=== PATIENT | female | born 1975 | race Caucasian/White ===

== ENCOUNTER → 2018-02-26 10:19 | Outpatient (CLI) | payer OTHER, SELFPAY ==
--- NOTE | 2018-02-26 10:20 | US_ITS ---
STUDY: RENAL ULTRASOUND - COMPLETE REASON FOR EXAM: Female, 42 years old. Right renal cell carcinoma with surgery 5 years ago TECHNIQUE: Ultrasound evaluation of the kidneys was performed with real-time and static gtz-scale imaging. COMPARISON: CT 03/07/2017 FINDINGS: RIGHT KIDNEY: Normal location of the right kidney, which is normal in size. The right kidney measures 9.0 x 5.5 x 5.3 cm. Postoperative changes involving the cortex. No recurrent or residual right renal mass is seen. The renal cortex measures 1.3 cm. There are no right renal calculi. There is no right hydronephrosis. DISTAL RIGHT URETER: There is non-visualization of the distal right ureter. There is no demonstrated right ureterovesical junction calculus. There is no demonstrated right ureteral jet. LEFT KIDNEY: Normal location of the left kidney, which is normal in size. The left kidney measures 12.2 x 6.2 x 5.5 cm. There is a normal cortex of the left kidney. The renal cortex measures 1.4 cm. There is no left renal mass or cyst. There are no left renal calculi. There is no left hydronephrosis. DISTAL LEFT URETER: There is non-visualization of the distal left ureter. There is no demonstrated left ureterovesical junction calculus. There is no demonstrated left ureteral jet. A left ovary cyst is noted measuring 5.3 x 4.5 x 4.2 cm. BLADDER: The distended urinary bladder has a volume of 760 ml. The empty urinary bladder has a volume of ml. There is a normal wall thickness of the distended urinary bladder. There is no demonstrated mass within the urinary bladder. There are no demonstrated bladder calculi. US/Kidney and Bladder IMPRESSION: Postoperative changes involving the right kidney. No recurrent or residual right renal mass is seen. Left ovary cyst measuring up to 5.3 cm. Distended urinary bladder. Electronically Signed: Donte Michel MD at 5:09 EDT Tel , Service support ,
== END ==
PROVIDERS: Family Provider Family Medicine; PCP Family Medicine; Visit Provider Urology
DX: C64.1 Malignant neoplasm of right kidney, except renal pelvis (principal)
CPT/HCPCS: 76770

== ENCOUNTER → 2019-02-12 16:45 | Outpatient (CLI) | payer OTHER, SELFPAY ==
[2019-02-12 17:48] LABS: Free T3 2.4 pg/mL (2.18-3.98); T4 Free Direct 1.11 ng/dL (0.76-1.46); Thyroid Stim Hormone (TSH) 2.76 uIU/mL (0.358-3.74)
== END ==
PROVIDERS: Family Provider Family Medicine; PCP Family Medicine; Visit Provider Family Medicine
DX: E03.9 Hypothyroidism, unspecified (principal)
CPT/HCPCS: 36415; 84439; 84443; 84481

== ENCOUNTER → 2019-02-25 07:45 | Outpatient (CLI) | payer OTHER, SELFPAY ==
--- NOTE | 2019-02-25 07:48 | US_ITS ---
STUDY: RENAL ULTRASOUND - COMPLETE REASON FOR EXAM: Female, 43 years old. History of right renal cancer with removal of 20% of the kidney in 2013. TECHNIQUE: Ultrasound evaluation of the kidneys was performed with real-time and static gtz-scale imaging. COMPARISON: February 26, 2018. FINDINGS: RIGHT KIDNEY: Normal location of the right kidney, which is normal in size. The right kidney measures 9.1 x 5.9 x 5.4 cm. There is a normal cortex of the right kidney. The renal cortex measures 1.6 cm. There is no right renal mass or cyst. There are no right renal calculi. There is no right hydronephrosis. Cortical defect midpole compatible with postsurgical change which has remained stable. DISTAL RIGHT URETER: There is non-visualization of the distal right ureter. There is no demonstrated right ureterovesical junction calculus. There is a visualized right ureteral jet. LEFT KIDNEY: Normal location of the left kidney, which is normal in size. The left kidney measures 12.4 x 6.2 x 5.4 cm. There is a normal cortex of the left kidney. The renal cortex measures 1.7 cm. There is no left renal mass or cyst. There are no left renal calculi. There is no left hydronephrosis. DISTAL LEFT URETER: There is non-visualization of the distal left ureter. There is no demonstrated left ureterovesical junction calculus. There is a visualized left ureteral jet. BLADDER: The distended urinary bladder has a volume of 352 ml. The empty urinary bladder has a volume of 21 ml. There is a normal wall thickness of the distended urinary bladder. There is no demonstrated mass within the urinary bladder. There are no demonstrated bladder calculi. US/Kidney and Bladder IMPRESSION: Stable post surgical defect midpole of the right kidney. No evidence of recurrence of tumor. Normal left kidney. No significant postvoid bladder residual. Electronically Signed: Troy العلي MD at 7:42 EDT , Service support ,
--- NOTE | 2019-02-25 07:49 | RAD_ITS ---
STUDY: X-RAY CHEST REASON FOR EXAM: Female, 43 years old. History of renal carcinoma. Follow-up examination. TECHNIQUE: PA and lateral views of the chest. COMPARISON: Comparison is made with prior study dated March 07, 2017. FINDINGS: The lungs are clear and expanded. There is no demonstrated pleural abnormality. Normal size heart. Normal mediastinum and drea. Normal visualized pulmonary arteries. Normal visualized aortic arch and descending thoracic aorta. There are mild degenerative changes of the visualized thoracic spine. Normal visualized ribs, clavicles, and shoulders. There is no demonstrated abnormality of the visualized soft tissue structures of the upper abdomen. RAD/Chest PA and Lateral IMPRESSION: Normal x-ray examination of the chest. Electronically Signed: Zeeshan Harper, at 10:19 EDT , Service support ,
[2019-02-25 09:10] LABS: Absolute Lymphocyte Count 2.58 X10^3/ul (0.83-4.51); Absolute Neutrophil Count 3.7 X10^3/uL (2.0-7.7); Basophil# 0.04 X10^3/uL; Basophil% 0.6 % (0-1); Eosinophil# 0.13 X10^3/uL; Eosinophils% 1.9 % (0-5); Hematocrit 40.9 % (37-47); Hemoglobin 13.8 g/dl (12.0-15.0); Lymphocyte # 2.58 X10^3/ul (4.0); Lymphocyte % 37.1 % (19-41); Mean Corp Hgb Conc 33.7 g/gl (32-36); Mean Corpuscular Hgb 29.8 pg (27.0-32.0); Mean Corpuscular Volume 88.3 fL (81-99); Mean Platelet Vol. 9.3 fl (6.2-12.0); Monocyte# 0.48 X10^3/uL; Monocyte% 6.9 % (0-10); Neutrophil # 3.71 X10^3/uL (2.7-7.7); Neutrophil % 53.4 % (47-70); Platelet Count 342 K/mm3 (150-450); RBC Distribution Width CV 12.4 % (11.6-14.6); RBC Distribution Width SD 39.6 fl (35.1-43.9); Red Blood Count 4.63 M/mm3 (4.2-5.4)
[2019-02-25 09:17] LABS: POSITIVE COUNT NO; POSITIVE DIFFERENTIAL NO; POSITIVE MORPHOLOGY NO
[2019-02-25 09:34] LABS: Anion Gap 7 (5-15); BUN 13 mg/dL (7-18); BUN/Creat Ratio 12.7 RATIO (10-20); Calcium,Total 9.1 mg/dL (8.5-10.1); Chloride 106 mmol/L (98-107); Creatinine, Serum 1.02 mg/dL (0.55-1.02); EST Glomerular Filtration Rate 63 mL/min (>60); Est Glom Filt Rate - Afr Amer 77 mL/min (>60); Glucose 101 mg/dL (74-106); Potassium 4.1 mmol/L (3.5-5.1); Sodium Level 140 mmol/L (136-145)
== END ==
PROVIDERS: Family Provider Family Medicine; PCP Family Medicine; Referring Provider Urology; Visit Provider Urology
DX: C64.1 Malignant neoplasm of right kidney, except renal pelvis (principal)
CPT/HCPCS: 36415; 71046; 76770; 80048; 85025

== ENCOUNTER → 2019-03-13 14:43 | Outpatient (CLI) | payer OTHER, SELFPAY ==
--- NOTE | 2019-03-13 14:45 | BI_ITS ---
MAMMOGRAPHY - BILATERAL SCREENING REASON FOR EXAM: Female, 43 years old. Routine annual screening examination. PERTINENT HISTORY: Non-contributory. TECHNIQUE: Digital bilateral breast antwan (3D mammographic acquisition) in the CC and MLO projections. 2-D mediolateral oblique (MLO) and craniocaudad (CC) views of both breasts were obtained. CAD: Full Field Digital Mammography with Computer Added Detection was performed. COMPARISON: None. Baseline examination. FINDINGS: Breast Composition: There are scattered areas of fibroglandular density. There are no dominant masses or suspicious calcifications. Small bilateral benign-appearing axillary lymph nodes. No other significant abnormalities are identified. BI/SCREENING MAMM (CAD), BILAT IMPRESSION: Negative screening mammogram. Yearly followup mammogram recommended. (A) ASSESSMENT CATEGORY: BIRADS Category 2: Benign. A letter regarding these results will be sent to the patient by the facility within 30 days. Approximately 10% of breast cancers are not detected by mammography. A normal mammogram should not delay biopsy of a clinically suspicious abnormality. [id number] Electronically Signed: Zeeshan Harper, at 8:04 EDT , Service support ,
== END ==
PROVIDERS: Family Provider Family Medicine; PCP Family Medicine; Referring Provider Family Medicine; Visit Provider Family Medicine
DX: Z12.31 Encounter for screening mammogram for malignant neoplasm of breast (principal)
CPT/HCPCS: 77063; 77067

== ENCOUNTER → 2019-07-31 13:04 | Outpatient (CLI) | payer OTHER, SELFPAY ==
--- NOTE | 2019-07-31 13:05 | RAD_ITS ---
STUDY: SWALLOWING STUDY REASON FOR EXAM: Female, 43 years old. Intermittent dysphagia. Globus sensation. TECHNIQUE: The examination was performed with Speech Pathology in attendance. Under fluoroscopic observation, the patient ingested thin barium, thick barium, barium pudding, and barium coated cracker. FLUOROSCOPY TIME: 0:59 minutes/seconds. 836 images were obtained. RADIOLOGIST INVOLVEMENT: Radiologist was present and providing direct supervision. COMPARISON: None. FINDINGS: The following was observed during swallowing of the various mixtures of barium: Thin Barium: Transient penetration and ejection with ingestion of thin liquids. Thick Barium: There was no evidence of aspiration or laryngeal penetration. Barium Pudding: There was no evidence of aspiration or laryngeal penetration. Barium Coated Cracker: There was no evidence of aspiration or laryngeal penetration. RAD/Swallowing Function w/Video IMPRESSION: Transient penetration with ejection upon ingestion of thin liquids. The swallow study findings were discussed with the patient by the speech pathologist at the conclusion of the examination. Please see speech pathology report for more information and recommendations. Electronically Signed: Zeeshan Harper, at 14:11 EDT , Service support ,
--- NOTE | 2019-07-31 13:10 | SP.MBSS_ITS ---
PRIMARY / SECONDARY DIAGNOSIS: dysphagia (R13.10) REFERRING PHYSICIAN: Dr. Chas Gibbs MD. CURRENT DIET: regular textures, thin liquids DENTITION: WFL MENTAL STATUS: WNL RESPIRATORY STATUS: O2 via room air REASON FOR REFERRAL: The Patient is a 43 year old female referred for a modified barium swallow (MBS) study to objectively assess the Patients oropharyngeal swallow function under fluoroscopy secondary to reported globus sensation with occasional return to the oral cavity (acidic qualities). MEDICAL HISTORY: Bronchitis, status post tonsillectomy and adenoidectomy (1988), renal mass, chronic headaches, unspecified hearing loss, vision loss, hyperlipidemia, and hypothyroidism. PREVIOUS MODIFIED BARIUM SWALLOW STUDY: None. ADDITIONAL OBJECTIVE ASSESSMENT RESULTS: 03/17/2017 MRI revealed a normal unenhanced and enhanced MRI of the bilateral internal auditory canals (I.A.C's); no intra-axial pathology; right mastoid sinus disease. ASSESSMENT PARAMETERS: The Patient participated in a Modified Barium Swallow (MBS) study on 07/31/2019. Dr. Harper was the radiologist present for this evaluation. This study was recorded in the lateral view and images were sent to PACs for storage. Scoring was completed through each trial using the 8-point Penetration-Aspiration Scale (PAS), and summarized via the Modified Barium Swallow Impairment Profile (MBSImP) and the Bolus Residue Scale (BRS), with severity scoring through the Dysphagia Severity Rating Scale (DSRS) and the Swallowing Performance Scale (PSP), and recommended diet textures through the International Dysphagia Diet Standardisation Initiative (IDDSI). RESULTS OF THE EVALUATION: The Patient presents with mastication and deglutition abilities found to be grossly within normal limits (DSRS: 1; SPS: 1). OBJECTIVE ASSESSMENT OF SWALLOW FUNCTION (QUANTITATIVE ? PER TRIAL): PENETRATION / ASPIRATION SCALE (MONTEJO): 1 = does not enter airway 2 = enters airway/above vocal folds/ejected 3 = enters airway/above vocal folds/not ejected 4 = enters airway/contacts vocal folds/ejected 5 = enters airway/contacts vocal folds/not ejected 6 = enters airway/below vocal folds/ejected 7 = enters airway/below vocal folds/not ejected despite effort 8 = enters airway/below vocal folds/no effort PENETRATION / ASPIRATION SCALE (SCORE): Thin liquid - 5 mL tsp.: 1 Thin liquids via cup (single sip): 1 Thin liquids via cup (single sip): 1 Thin liquids via cup (sequential swallows): 2 Pudding via spoon: 1 Regular textured cookie: 1 Thin liquids via straw (single sip): 2 Thin liquids via straw (single sip): 1 Thin liquids via straw (sequential swallows): 1 OBJECTIVE ASSESSMENT OF SWALLOW FUNCTION (QUANTITATIVE ? AGGREGATE): MODIFIED BARIUM SWALLOW IMPAIRMENT PROFILE (MBSImP) LABIAL SEAL: 0 (of 4) no labial escape TONGUE CONTROL: 0 (of 3) cohesive bolus BOLUS PREPARATION / MASTICATION: 0 (of 3) timely and efficient BOLUS TRANSPORT / LINGUAL MOTION: 0 (of 4) brisk tongue motion ORAL RESIDUE: 1 (of 4) trace residue lining oral structures INITIATION OF PHARYNGEAL SWALLOW: 1 (of 4) valleculae SOFT PALATE ELEVATION: 0 (of 4) no bolus between soft palate & pharyngeal wall LARYNGEAL ELEVATION: 0 (of 3) complete superior movement / approximation ANTERIOR HYOID EXCURSION: 0 (of 2) complete movement EPIGLOTTIC MOVEMENT: 0 (of 2) complete inversion LARYNGEAL VESTIBULE CLOSURE: 0 (of 2) complete closure PHARYNGEAL STRIPPING WAVE: 0 (of 2) present / complete PE SEGMENT OPENIN (of 3) complete distension / duration; no obstruction TONGUE BASE RETRACTION: 0 (of 4) no contrast PHARYNGEAL RESIDUE: 1 (of 4) trace residue ESOPHAGEAL BOLUS CLEARANCE: could not view BOLUS RESIDUE SCALE (BRS): 1 (of 6) no residue DYSPHAGIA SEVERITY RATING SCALE (DSRS): 1 (within functional limits) SWALLOWING PERFORMANCE SCALE (SPS): 1 (within normal limits) OBJECTIVE ASSESSMENT OF SWALLOW FUNCTION (QUALITATIVE): ORAL PREPARATORY PHASE: sufficient mastication rate and quality; sufficient anterior oral containment during presentation / manipulation; preserved management of breathing / bolus formation without disrupted E ? S ? E pattern ORAL TRANSITIONAL PHASE: no presence of transitional incompetence; no lingual discoordination (no tremor / undulations); sufficient oral clearance; sufficient oral containment across textures. PHARYNGEAL PHASE: no signs of pharyngeal dyssynchrony; sufficient hyolaryngeal excursion; sufficient / consistent laryngeal vestibule pressure generated to expel penetrated material; no signs of pharyngeal dysmotility; no signs of velopharyngeal impairments. ESOPHAGEAL PHASE: no obvious esophageal phase abnormalities observed. 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 No further skilled speech- language services warranted at this time targeting dysphagia. POST ASSESSMENT EDUCATION: Results and recommendations were discussed with the Patient immediately following MBS completion, with the Patient verbalizing understanding and agreement with all recommendations and education provided. DIET TEXTURE RECOMMENDATIONS: Will recommend a regular textured (IDDSI: 7), thin liquid diet (IDDSI: 0) diet. RECOMMENDED COMPENSATORY STRATEGIES: Seated upright at 90 degrees during PO intake, remain upright for 30-60 minutes post meal (GERD precaution) IMAGE COUNT: [id number] Vaibhav Mitchell M.A., CCC-FARM DEMONSTRATOR MBSImP Certified, LSVT Certified [facility] Speech-Language Pathology Department [email or web address]
== END ==
PROVIDERS: Family Provider Family Medicine; PCP Family Medicine; Referring Provider Family Medicine; Visit Provider Family Medicine
DX: R13.10 Dysphagia, unspecified (principal)
CPT/HCPCS: 74230; 92611

== ENCOUNTER → 2020-01-08 15:48 | Outpatient (CLI) | payer OTHER, SELFPAY ==
--- NOTE | 2020-01-08 15:49 | RAD_ITS ---
STUDY: X-RAY - RIGHT SHOULDER REASON FOR EXAM: Female, 44 years old. CHILD LANDED ON SHOULDER TECHNIQUE: 4 view(s) of the shoulder. COMPARISON: None. FINDINGS: Normal glenohumeral articulation. Normal acromioclavicular joint. Normal acromion. Normal humeral head and visualized proximal humerus. The soft tissue structures are unremarkable. Normal visualized pulmonary apex. RAD/Shoulder min 2 Views IMPRESSION: Normal x-ray examination of the shoulder. Electronically Signed: Zeeshan Harper, at 16:01 EST , Service support ,
== END ==
PROVIDERS: PCP Family Medicine; Referring Provider Physician Assistant; Visit Provider Physician Assistant
DX: S49.91XA Unspecified injury of right shoulder and upper arm, initial encounter (principal)
CPT/HCPCS: 73030

== ENCOUNTER → 2021-08-03 17:00 | Outpatient (CLI) | payer OTHER, SELFPAY ==
--- NOTE | 2021-08-03 16:14 | BI_ITS ---
MAMMOGRAPHY - BILATERAL SCREENING REASON FOR EXAM: Female, 45 years old. Routine annual screening examination. PERTINENT HISTORY: Aunt with breast cancer. TECHNIQUE: Digital bilateral breast miranda (3D mammographic acquisition) in the CC and MLO projections. 2-D mediolateral oblique (MLO) and craniocaudad (CC) views of both breasts were obtained. CAD: Full Field Digital Mammography with Computer Added Detection was performed. COMPARISON: Comparison is made with prior examination dated 03/13/2019. FINDINGS: Breast Composition: There are scattered areas of fibroglandular density. There are no dominant masses or suspicious calcifications. Stable asymmetry of breast tissue were more breast tissue is seen in the left breast as compared to the right side. No other significant abnormalities are identified. There has been no significant change since the prior study. BI/SCRN MAMM (CAD)W/MIRANDA BILAT IMPRESSION: Stable bilateral screening mammogram. Yearly follow-up mammogram recommended. (A) ASSESSMENT CATEGORY: BIRADS Category 2: Benign. A letter regarding these results will be sent to the patient by the facility within 30 days. Approximately 10% of breast cancers are not detected by mammography. A normal mammogram should not delay biopsy of a clinically suspicious abnormality. [id number] Electronically Signed: Zeeshan Harper MD at 8:30 EDT , Service support ,
== END ==
PROVIDERS: PCP Family Medicine; Referring Provider Family Medicine; Visit Provider Family Medicine
DX: Z12.31 Encounter for screening mammogram for malignant neoplasm of breast (principal)
CPT/HCPCS: 77063; 77067

== ENCOUNTER → 2021-11-22 07:12 | Outpatient (CLI) | payer OTHER, SELFPAY ==
--- NOTE | 2021-11-22 07:42 | MRI_ITS ---
STUDY: MRI RIGHT ANKLE WITH AND WITHOUT CONTRAST REASON FOR EXAM: Female, 46 years old. TENDON DISORDER, LUMP ANTERIOR TO LATERAL MALLEOLUS TECHNIQUE: Standarized fat and water weighted pulse sequences were obtained in all 3 orthogonal plane pre and post intravenous administration of 20 CC IV DOTAREM. COMPARISON: None. FINDINGS: A benign peripherally enhancing ganglion cyst is present over the dorsum and lateral aspect of the cuboid bone measuring 2.47 x 1.50 cm in diameter. There is minimal peripheral enhancement of the wall of the ganglion cyst but no internal enhancement. There is no evidence of a sarcoma or malignant process. This cyst is seen arising from the fourth metatarsal cuboid articulation and herniating onto the dorsum of this region. A small ankle joint effusion is present. Tiny ganglion cyst herniating from the talocalcaneal articulation/sinus tarsi also noted adjacent to the body of the talus measuring 1.65 cm. No bone marrow edema or occult fracture or osteochondral defect is present. Normal subcutis adipose space. Normal posterior tibialis tendon. Normal flexor digitorum longus tendon. Normal flexor hallucis longus tendon. Normal peroneus longus and brevis tendons. Normal tibialis anterior tendon. Normal extensor hallucis longus tendon. Normal extensor digitorum longus tendons. Normal Achilles tendon and teno-osseous insertion. Small plantar calcaneal spur noted with moderate thickening of the underlying central cord of the plantar fascia also with mild to moderate intrafascial degeneration but no tearing or retraction. No bursitis is present. Normal remaining aspects of the plantar fascia. Minimal reactive edema is present in the plantar calcaneal spur where it attaches to the plantar fascia. Normal intrinsic muscles of the rearfoot. Normal distal tibiofibular syndesmotic ligamentous complex. Normal lateral ligamentous complex. Normal subtalar ligaments and sinus tarsi. Normal deltoid ligamentous complexes. Normal plantar calcaneonavicular (spring) ligament. Normal tibiotalar articulation. Normal talar dome. Normal subtalar articulations. Normal talonavicular articulation. Normal calcaneocuboid articulation. Normal navicular-cuneiform articulations. There is no abnormal contrast enhancement. MRI/Lower Ext Joint Only W/WO Cont IMPRESSION: 1. A benign peripherally enhancing ganglion cyst is present over the dorsum and lateral aspect of the cuboid bone measuring 2.47 x 1.50 cm in diameter. There is minimal peripheral enhancement of the wall of the ganglion cyst but no internal enhancement. There is no evidence of a sarcoma or malignant process. This cyst is seen arising from the fourth metatarsal cuboid articulation and herniating onto the dorsum of this region. 2. Small plantar calcaneal spur noted with moderate thickening of the underlying central cord of the plantar fascia also with mild to moderate intrafascial degeneration but no tearing or retraction. No bursitis is present. Normal remaining aspects of the plantar fascia. Minimal reactive edema is present in the plantar calcaneal spur where it attaches to the plantar fascia Electronically Signed: Chris Potter MD at 23:49 EST , Service support ,
== END ==
PROVIDERS: PCP Family Medicine; Referring Provider Podiatrist; Visit Provider Podiatrist
DX: M67.471 Ganglion, right ankle and foot (principal); M77.31 Calcaneal spur, right foot
CPT/HCPCS: 73723; A9575

== ENCOUNTER → 2021-11-23 | Outpatient (CLI) | payer OTHER, SELFPAY ==
--- NOTE | 2021-11-23 16:23 | FLU_PTH ---
PATIENT: SALAS ROMERO LOC: [facility] U#:[id number] AGE/SX: 46/F ROOM: RE11/23/[address]: ABHI FlanaganM : 1975 BED: DIS: 11/23/2021 SPEC #: [id number] RECD: 11/24/21 12:06 STATUS: IAN REXavier #: [id number] SEGUN: 11/23/21 16:[address]: Elias Cook DEPT: CYTOLOGY RECD BY: Shawna Nguyen ENTERED: 11/24/21 12:07 SP TYPE: Fluid OTHR DR: Dr. Chas Gibbs, DO Tissues: CYST Procedures: Special Stain Group II Surgery Specimen Level IV Cytospin Fluid HEADER OPERATION: Not noted PRE-OP DIAGNOSIS: M67.110 TISSUE SUBMITTED: Right foot ganglionic cyst fluid DIAGNOSIS CYTOLOGY Right foot ganglionic cyst fluid (cytospin and cell block): Negative for malignant cells. See comment. SJ:heriberto 11/25/2021 COMMENT Clinical correlation and appropriate follow up are necessary. CYTOLOGY STUDY Slides are reviewed. CYTOLOGY GROSS Received is 2 ml of pink cloudy thick fluid labeled with the patient's name and and designated per the requisition as right ganglionic cyst. Submitted for cytology preparation including cell block. / heirberto 11/24/2021 TC:5 CPT: 81866, [id number]
[2021-11-23 16:24] LABS: Cytology, Body Fluid / CSF SEE PATHOLOGY REPORT
== END | disposition home or self-care (01) ==
LOC: LABSPEC 16:22
PROVIDERS: PCP Family Medicine; Visit Provider Podiatrist
DX: M67.471 Ganglion, right ankle and foot (principal)
CPT/HCPCS: 88108; 88304; 88305; 88313

== ENCOUNTER 2021-12-23 15:53 | Outpatient (CLI) | payer OTHER, SELFPAY ==
[2021-12-23 16:18] LABS: Absolute Lymphocyte Count 3.84 X10^3/uL (0.83-4.51); Absolute Neutrophil Count 4.5 X10^3/uL (2.0-7.7); Basophil# 0.08 X10^3/uL; Basophil% 0.9 % (0-1); Eosinophil# 0.22 X10^3/uL; Eosinophils% 2.3 % (0-5); Hematocrit 40.8 % (37-47); Hemoglobin 13.6 g/dL (12.0-15.0); Lymphocyte # 3.84 X10^3/ul (0.83-4.51); Lymphocyte % 40.9 % (19-41); Mean Corp Hgb Conc 33.3 g/dL (32-36); Mean Corpuscular Hgb 29.4 pg (27.0-32.0); Mean Corpuscular Volume 88.1 fL (81-99); Monocyte# 0.74 X10^3/uL; Monocyte% 7.9 % (0-10); NRBC Flagged by Analyzer 0 % (0-5); Neutrophil # 4.47 X10^3/uL (2.7-7.7); Neutrophil % 47.5 % (47-70); Platelet Count 438 K/mm3 (150-450); RBC Distribution Width CV 12.4 % (11.6-14.6); RBC Distribution Width SD 39.7 fl (35.1-43.9); Red Blood Count 4.63 M/mm3 (4.2-5.4); White Blood Count 9.4 K/mm3 (4.4-11.0)
[2021-12-23 16:56] LABS: ALB/GLOB Ratio 0.9 RATIO (0.9-2.4); AST(SGOT) 15 U/L (15-37); Alanine Aminotransfer ALT/SGPT 35 U/L (13-56); Albumin, Serum 3.7 g/dL (3.2-5.0); Alkaline Phosphatase 49 U/L (45-117); Anion Gap 5 (5-15); BUN 13 mg/dL (7-18); BUN/Creat Ratio 14.2 RATIO (10-20); Calcium,Total 9.2 mg/dL (8.5-10.1); Chloride 105 mmol/L (98-107); Creatinine, Serum 0.92 mg/dL (0.55-1.02); EST Glomerular Filtration Rate 71 mL/min (>60); Est Glom Filt Rate - Afr Amer 86 mL/min (>60); Globulin 3.9 g/dL (2.2-4.2); Glucose 101 mg/dL (74-106); Potassium 4.1 mmol/L (3.5-5.1); Protein, Total 7.6 g/dL (6.4-8.2); Sodium Level 138 mmol/L (136-145)
== END 2021-12-23 23:59 | disposition short-term general hospital (02) ==
LOC: LAB 15:54
PROVIDERS: PCP Family Medicine; Visit Provider Family Medicine
DX: Z01.818 Encounter for other preprocedural examination (principal)
CPT/HCPCS: 36415; 80053; 85025

== ENCOUNTER 2022-01-14 11:58 | Day surgery (SDC) | payer OTHER, SELFPAY ==
--- NOTE | 2022-01-14 | GANG_PTH ---
PATIENT: SALAS ROMERO [place] [facility] [place][id number] AGE/SX: 46/F ROOM: RE01/14/[address]: ABHI FlanaganM : 1975 BED: DIS: 01/14/2022 SPEC #: [id number] RECD: 01/17/22 08:16 STATUS: IAN REXavier #: [id number] SEGUN: 01/14/22 00:[address]: Elias Cook DEPT: SURGICAL PATHOLOGY RECD BY: Moses Angel ENTERED: 01/17/22 11:12 SP TYPE: GANGLION OTHR DR: Dr. Chas Gibbs, DO Tissues: GANGLION CYST Procedures: Surgery Specimen Level III HEADER OPERATION: Excision ganglion, foot PRE-OP DIAGNOSIS: Ganglion cyst TISSUE SUBMITTED: Ganglion cyst MICROSCOPIC DIAGNOSIS Ganglion cyst, biopsy: Consistent with ganglion cyst. AM:heriberto 01/18/2022 MICROSCOPIC DESCRIPTION Slides are reviewed. GROSS DESCRIPTION Received in fixative is one container labeled with the patient's name and designated ganglion cyst. The specimen consists of a piece of guzman-pink soft tissue measuring 2 x 1 x 0.6 cm. Sections reveal a cyst filled with mucoid to hemorrhagic fluid measuring 1.2 cm in greatest dimension. The entire specimen is submitted in one cassette. / SJ:rg 01/17/2022 TC:5 CPT: 02749
[2022-01-14 12:26] VITALS: BP 128/89; PULSE 85; RESP 16; TEMP 36.6; O2SAT 97; BMI 39.0
--- NOTE | 2022-01-14 14:40 | RAD_ITS ---
STUDY: INTRAOPERATIVE FLUOROSCOPY TECHNIQUE: The examination was performed with referring physician in attendance. Under fluoroscopic observation, fluoroscopic images were obtained. Radiologist was not present for the study. Radiologist did not perform the procedure. This dictation is for documentation of the radiation dosage only. There is no interpretation of the images. TOTAL NUMBER OF IMAGES: 1 COMPARISON: None RADIATION DOSE: .04 mGy FLUOROSCOPY TIME: .05 minutes REASON FOR EXAM: EXCISION GANGLION Female, 46 years old. FINDINGS: Images of the foot. RAD/Foot min 3 Views IMPRESSION: Fluoroscopic assistance images were obtained. Dictation for documentation purposes only. Electronically Signed: Elio Harris MD at 17:24 EST ,
[2022-01-14] MEDS: Cefazolin 2 GM in 0.9% Normal Saline 100 ML IV (14:46)
[2022-01-14] MEDS: Bupivacaine Mpf 0.5% 30 ML VIAL (14:55)
[2022-01-14 15:43] VITALS: BP 128/89; BP 95/70; PULSE 78; RESP 18; TEMP 37.3; O2SAT 96
--- NOTE | 2022-01-14 15:47 | PCM.OP.BLANK ---
Problems Associated Problem List Diagnoses (1) Ganglion cyst of right foot: Operative Report Date of Procedure: 01/14/22 Surgeon: Elias Cook D.P.M. payroll and benefits assistant: Mookie Isaacs D.P.M. PGY 2 Anesthesia: MAC with local Preoperative diagnosis: Ganglionic cyst right foot postoperative diagnosis: Same Procedure excision of ganglionic cyst right foot Hemostasis: Mid calf tourniquet (28-minute tourniquet time) Estimated blood loss: Less than 3 cc Materials: None Injectables: 10 cc half percent Marcaine plain Indications: This 46-year-old female presented to clinic with a bump to her right lateral foot causing pain with ambulation close shoe gear. Over the course of a year patient attempted multiple aspirations of this lesion which yielded gelatinous fluid and temporary pain relief; however, recurrence occurred. MRI confirmed ganglionic cyst extending from the peroneus brevis tendon. Decision was made for surgical excision to prevent recurrence. Procedure in detail: Patient was brought back to the operating room induced under MAC anesthesia. A well-padded midcalf tourniquet was applied to the right lower extremity. A local infiltration block was performed over the right lateral midfoot using local infiltration technique with 10 cc of half percent Marcaine plain. The right foot was then scrubbed prepped and draped using typical aseptic manner. The right lower extremity was then elevated and tourniquet was inflated to 250 mmHg. A 4 cm incision was drawn over the lateral foot just distal and anterior to the lateral malleolus and superior to the sural nerve. This incision was centered directly over the lesion. This incision was made with a #15 blade once cleared by anesthesia through the epidermis dermis blunt dissection was taken down the level of the fascia all bleeders were identified and cauterized at this time care was taken to avoid any neurovascular structures this would be prevented protected using blunt retraction. Once incision was made into the deep fascia the ganglion became apparent. It measured approximately 2 x 4 cm. This was gently dissected out using blunt dissection the stalk was identified extending from the peroneus brevis tendon this was closed with 4-0 Vicryl and the lesion itself was completely excised and sent to pathology for further examination. The incision site was then flushed with copious amounts of normal sterile saline. Subcutaneous closure was performed using simple interrupted buried 3-0 Vicryl. Skin closure was performed using simple interrupted 3-0 Prolene. The tourniquet was let down prior to skin incision to ensure adequate hemostasis. Tourniquet time was 28 minutes. Incision was dressed with bacitracin Adaptic 4 x 4's Kerlix and a light modified Bravo compression dressing 1 layer. Pathologic specimens: Ganglionic cyst right foot Complications: None Findings: Complete excision of ganglionic cyst from for right peroneus brevis tendon with stock closure. Patient tolerated procedure and anesthesia well in apparent satisfactory condition. Patient was transferred to PACU with vital signs stable vascular status intact to all digits for further monitoring prior to discharge. Patient will remain in a Cam walking boot for the next 2 to 4 weeks until incision healing she will be seen in my office 1 week postop. She will likely transition to normal shoe gear at about 2 to 4 weeks postop. We will await pathologic results to confirm diagnosis.
[2022-01-14 15:50] VITALS: BP 128/89; BP 88/49; PULSE 75; RESP 16; O2SAT 97
[2022-01-14 15:55] VITALS: BP 128/89; BP 98/67; PULSE 74; RESP 16; O2SAT 98
[2022-01-14 16:02] VITALS: BP 112/83; BP 128/89; PULSE 72; RESP 16; TEMP 36.8; O2SAT 96
[2022-01-14 16:15] VITALS: BP 128/89
== END 2022-01-14 23:59 | disposition home or self-care (01) ==
LOC: SDC 12:00 → AC 12:01
PROVIDERS: PCP Family Medicine; Referring Provider Podiatrist; Visit Provider Podiatrist
PROC: (CPT 28090; principal; 2022-01-14 13:15)
DX: M67.471 Ganglion, right ankle and foot (principal); Z68.42 Body mass index [BMI] 45.0-49.9, adult; I10 Essential (primary) hypertension; E78.00 Pure hypercholesterolemia, unspecified; E03.9 Hypothyroidism, unspecified; E66.9 Obesity, unspecified; Z90.5 Acquired absence of kidney; Z79.899 Other long term (current) drug therapy; Z87.891 Personal history of nicotine dependence
CPT/HCPCS: 28090; 01470; 73630; 76000; 88304; J7040; J2405

== ENCOUNTER 2022-03-23 06:20 | Day surgery (SDC) | payer OTHER, SELFPAY ==
--- NOTE | 2022-03-22 | COLBX_PTH ---
PATIENT: SALAS ROMERO LOC: EN U#:[id number] AGE/SX: 46/F ROOM: RE03/23/[address]: Dr. Daphne Montalvo MD : 1975 BED: DIS: 03/23/2022 SPEC #: [id number] RECD: 03/23/22 09:41 STATUS: IAN REXavier #: [id number] SEGUN: 03/22/22 00:[address]: Daphne Montalvo DEPT: SURGICAL PATHOLOGY RECD BY: Moses Angel ENTERED: 03/23/22 09:56 SP TYPE: COLON BX OTHR DR: Dr. Chas Gibbs DO Tissues: Sigmoid colon biopsy Procedures: Surgery Specimen Level IV HEADER OPERATION: Colonoscopy (MAC) PRE-OP DIAGNOSIS: Family history of colon cancer, GERD TISSUE SUBMITTED: Distal sigmoid polyp MICROSCOPIC DIAGNOSIS Distal sigmoid polyp, biopsy: Tubular adenoma. Fragments of fecal material. SJ:heriberto 03/24/2022 MICROSCOPIC DESCRIPTION Slides are reviewed. GROSS DESCRIPTION Received in fixative is one container labeled with the patient's name and designated distal sigmoid polyp. The specimen consists of multiple irregular fragments of light guzman soft tissue that in aggregate measure 1 x 0.2 x 0.1 cm. The specimen is totally submitted in one cassette. / SJ:rg 03/23/2022 TC:1 CPT: 18880
[2022-03-23 07:03] VITALS: BP 135/100; PULSE 82; RESP 16; TEMP 36.7; O2SAT 100; BMI 39.1
[2022-03-23] MEDS: Lactated Ringers 1,000 ML 15 ML IV (07:07)
--- NOTE | 2022-03-23 07:23 | HP.PCM_ITS ---
History and Physical Date of Admission: 03/23/22 Date of Service: 03/08/22 MR#:[id number]: SALAS ROMERO #:[id number]:[id number] Provider:Sandoval Castellon/Sex: 46/F [facility] Int[facility] Vital Signs 03/08/22 08:42 Height 5 ft 4 in Weight: 236 lb 6 oz BMI 40.6 BP 152/87 H Blood Pressure Location Rt brachial Position Sitting Respiration 17 Pulse 85 Pulse Source Monitor Temp 97.8 F Temp Source Temporal Pulse Oximetry (%) 98 Oxygen Delivery Method room air Intake Visit Reasons: C-SCOPE Chief Complaint: CSCOPE Head Inspector Required: No Is patient in pain?: No Allergies adhesive Allergy (Verified 03/08/22 08:43) Rash Medications simvastatin 40 mg tablet 20 mg PO DAILY 01/08/20 [History Confirmed 03/08/22] amlodipine 5 mg-benazepril 10 mg capsule 1 cap PO DAILY 03/08/22 [History Confirmed 03/08/22] levothyroxine 25 mcg capsule 115 mcg PO DAILY cap 03/08/22 [History] PFS Medical History (Updated 03/08/22 @ 08:[address] Daphne Montalvo MD) Cancer child Encounter for screening for COVID-19 Former smoker Gastric reflux High cholesterol History of diverticulitis History of hiatal hernia History of kidney cancer History of stress test Hypercholesterolemia Hypertension Post-menopausal Shortness of breath on exertion Shoulder pain Thyroid disease Wears contact lenses Wears glasses Surgical History (Updated 03/08/22 @ 08:41 by Taylor Monday) History of hysterectomy History of surgical removal of ganglion cyst History of tonsillectomy and adenoidectomy Hx laparoscopic cholecystectomy Hx of colonoscopy Hx of partial nephrectomy Hx of wisdom tooth extraction Family History (Updated 03/08/22 @ 08:41 by Taylor Monday) Mother Myocardial infarction Hypercholesterolemia Heart disease Hypertension Father Colon cancer Diabetes Social History (Updated 03/08/22 @ 08:41 by Taylor Monday) Smoking Status: Former smoker alcohol intake: never substance use type: does not use HPI HPI HPI: SALAS ROMERO, is a 46 F who presents to the office today for screening colonoscopy due to family history of colon cancer. Patient's father was diagnosed at age 52. Patient states she has been bowel movements on average every other day denies any blood. Patient has been having some reflux symptoms of burning up the esophagus/coughing/occasional dysphagia. Patient is currently on omeprazole [id number] 20 mg for last 3 to 4 weeks. Patient states that has controlled her symptoms. Patient's never had a previous EGD. Patient's last colonoscopy was about 2010 was told to come back in 10 years as it was negative. Patient currently denies any chronic abdominal pain/nausea/vomiting. ROS General General: No weight change, appetite, fatigue, colon cancer or breast cancer HEENT HEENT: Yes difficulty swallowing; No eye injury, eye surgery, swollen glands or hoarseness Endo Endocrine: Yes thyroid disease; No diabetes mellitus, thyroid cancer, Hair loss, heat intolerance or cold intolerance Skin Skin: No rash or changing moles Musc Musculoskeletal: No back problems, arthritis, rheumatoid arthritis, gout or joint pain Cardio Cardiovascular: Yes high blood pressure; No murmur, pacemaker, heart disease, atrial fibrillation, heart attack, heart stent, palpitations, shortness of breat with exertion or chest pain Psych Psychiatric: No depression, anxiety or hearing voices Resp Respiratory: No shortness of breath, No sleep apnea, Yes cough, No COPD, No asthma, No emphysema and No wheezing Gastro Gastrointestinal: Yes abdominal pain, No nausea or vomiting, No diarrhea, Yes constipation, No blood in stool, Yes acid reflux, No hemorrhoids, No ulcers, No gallbladder problem and No black,tarry stools Kieran Hematologic: No blood thinners, No blood disorders, No bleeding, No anemia and No blood clots Neuro Neurologic: No abnormal speech and No confusion Exam Const General: cooperative, healthy appearing, comfortable and no acute distress [facility] Head: normocephalic and atraumatic Neck Neck: normal visual inspection Resp Effort & Inspection: normal respiratory effort Cardio Rate: regular rate GI Inspection: non-distended Palpation: soft, no guarding and nontender Skin General: no rashes or lesions noted Neuro General: patient oriented x3 Extrem General: no clubbing, cyanosis or edema Psych Affect: normal affect Assessment and Plan Assessment and Plan (1) Family history of colon cancer in father: Status: Acute Comment: 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 Daphne Montalvo MD: Patient is currently omeprazole 20 mg p.o. daily which is controlling her reflux symptoms. Discussed with patient that she continues to be on this chronically would recommend an EGD in 3 to 5 years just to make sure were not masking any symptoms. I have discussed the above with the patient. I have offered the patient colonoscopy for evaluation. I have explained the risks/benefits of the procedure and described the procedure. I have discussed the risks with the patient, including but not limited to: infection, bleeding, perforation of the GI tract requiring emergency surgery, inability to complete the procedure, injury to any internal organs, complications of anesthesia, etc. - the patient understands and agrees to proceed. I have answered all the patient's questions to the patient's satisfaction and the patient has no further questions. The patient has been given instructions for the colon cleansing preparation. 1 day clears, MiraLAX Dulcolax split prep. Daphne Montalvo M.D. Pager: [phone] [facility] [address] [place] [address], [address] [place] [address] Office: [phone] Coding Level of Care Code Off vis,new,level 3 Diagnoses Family history of colon cancer in father Z80.0 GERD (gastroesophageal reflux disease) K21.9 03/08/22 0849<Electronically signed by Daphne Montalvo MD>Date Daphne Montalvo MD
[2022-03-23 08:00] VITALS: BP 105/59; BP 135/99; PULSE 75; RESP 16; TEMP 36.2; O2SAT 100
--- NOTE | 2022-03-23 08:00 | OP.COLON_ITS ---
Patient Name: Xiao Courtney Procedure Date: 03/23/2022 7:22 AM Date of : 1975 Age: 46 Procedure: Colonoscopy Indications: Screening in patient at increased risk: Colorectal cancer in father before age 60 Providers: Daphne Montalvo MD Medicines: Monitored Anesthesia Care Patient Profile: This is a 46 year old female. Last Colonoscopy: 2010. Complications: No immediate complications. Procedure: Pre-Anesthesia Assessment: - Prior to the procedure, a History and Physical was performed, and patient medications and allergies were reviewed. The patient's tolerance of previous anesthesia was also reviewed. The risks and benefits of the procedure and the sedation options and risks were discussed with the patient. All questions were answered, and informed consent was obtained. Prior Anticoagulants: The patient has taken no previous anticoagulant or antiplatelet agents. ASA Grade Assessment: Per anesthesia. After reviewing the risks and benefits, the patient was deemed in satisfactory condition to undergo the procedure. After I obtained informed consent, the scope was passed under direct vision. Throughout the procedure, the patient's blood pressure, pulse, and oxygen saturations were monitored continuously. The Colonoscope was introduced through the anus and advanced to the cecum, identified by the appendiceal orifice, ileocecal valve and palpation. The colonoscopy was performed without difficulty. The patient tolerated the procedure well. The quality of the bowel preparation was good. Scope In: 7:31:16 AM Scope Withdrawal Time 0 hours 15 minutes 25 seconds Scope Out: 7:52:57 AM Total Procedure Duration Time 0 hours 21 minutes 41 seconds Findings: The perianal and digital rectal examinations were normal. Multiple small-mouthed diverticula were found in the sigmoid colon, descending colon and transverse colon. A less than 5 mm polyp was found in the distal sigmoid colon. The polyp was semi-pedunculated. The polyp was removed with a hot snare. Resection and retrieval were complete. The exam was otherwise without abnormality on direct and retroflexion views. Impression: - Diverticulosis in the sigmoid colon, in the descending colon and in the transverse colon. - One less than 5 mm polyp in the distal sigmoid colon, removed with a hot snare. Resected and retrieved. - The examination was otherwise normal on direct and retroflexion views. Recommendation: - Discharge patient to home. - High fiber diet. - Continue present medications. - Await pathology results. - Repeat colonoscopy in 3 years for surveillance based on pathology results. Procedure Code(s): --- Professional --- 71147, PT, Colonoscopy, flexible; with removal of tumor(s), polyp(s), or other lesion(s) by snare technique Diagnosis Code(s): --- Professional --- Z80.0, Family history of malignant neoplasm of digestive organs D12.5, Benign neoplasm of sigmoid colon K57.30, Diverticulosis of large intestine without perforation or abscess without bleeding CPT copyright 2017 [employer]. All rights reserved. The codes documented in this report are preliminary and upon produce runner review may be revised to meet current compliance requirements. MD Daphne Perea MD 03/23/2022 7:59:56 AM This report has been signed electronically. Number of Addenda: 0 Note Initiated On: 03/23/2022 7:22 AM
--- NOTE | 2022-03-23 08:01 | OP.CCLET_ITS ---
03/23/2022 Chas Gibbs [address] [place] [address] Re : Colonoscopy procedure for Xiao Sherwin Dear Dr. Gibbs This procedure was performed on Wednesday, March 23, 2022. My impressions and recommendations are as follows: Impressions : - Diverticulosis in the sigmoid colon, in the descending colon and in the transverse colon. - One less than 5 mm polyp in the distal sigmoid colon, removed with a hot snare. Resected and retrieved. - The examination was otherwise normal on direct and retroflexion views. Recommendations : - Discharge patient to home. - High fiber diet. - Continue present medications. - Await pathology results. - Repeat colonoscopy in 3 years for surveillance based on pathology results. My findings are described in the full procedure note, which is enclosed. If I can be of further assistance, please feel free to contact me at Doctor phone number(s): , Work: . Sincerely, MD Daphne Perea MD 03/23/2022 7:59:56 AM This report has been signed electronically.
[2022-03-23 08:05] VITALS: BP 126/64; BP 135/99; PULSE 80; RESP 16; O2SAT 99
[2022-03-23 08:10] VITALS: BP 108/71; BP 135/99; PULSE 70; RESP 16; O2SAT 100
[2022-03-23 08:15] VITALS: BP 118/82; BP 135/99; PULSE 70; RESP 16; TEMP 36.2; O2SAT 100
[2022-03-23 08:27] VITALS: BP 135/99
== END 2022-03-23 08:41 | disposition home or self-care (01) ==
LOC: EN 06:21 → AC 06:22
PROVIDERS: PCP Family Medicine; Referring Provider Family Medicine; Visit Provider Surgery
PROC: 0DJD8ZZ Inspection of Lower Intestinal Tract, Via Natural or Artificial Opening Endoscopic (ICD-10-PCS; CPT 45378; principal; 2022-03-23 07:25)
DX: D12.5 Benign neoplasm of sigmoid colon (principal); K57.30 Diverticulosis of large intestine without perforation or abscess without bleeding; Z80.0 Family history of malignant neoplasm of digestive organs; E78.00 Pure hypercholesterolemia, unspecified; E07.9 Disorder of thyroid, unspecified; I10 Essential (primary) hypertension; K21.9 Gastro-esophageal reflux disease without esophagitis; Z90.49 Acquired absence of other specified parts of digestive tract; Z79.899 Other long term (current) drug therapy; Z87.891 Personal history of nicotine dependence
CPT/HCPCS: 45385; 88305; J7120; J2405

== ENCOUNTER → 2022-10-21 | Outpatient (CLI) | payer OTHER, SELFPAY ==
--- NOTE | 2022-10-21 14:33 | BI_ITS ---
MAMMOGRAPHY - BILATERAL SCREENING REASON FOR EXAM: Female, 47 years old. Routine annual screening examination. PERTINENT HISTORY: Aunt with breast cancer. TECHNIQUE: Digital bilateral breast miranda (3D mammographic acquisition) in the CC and MLO projections. 2-D mediolateral oblique (MLO) and craniocaudad (CC) views of both breasts were obtained. CAD: Full Field Digital Mammography with Computer Added Detection was performed. COMPARISON: Comparison is made with prior study dated 08/03/2021 and 03/13/2019. FINDINGS: Breast Composition: There are scattered areas of fibroglandular density. There are no dominant masses or suspicious calcifications. Stable asymmetry of breast tissue where more breast tissue is seen in the upper outer aspect of the left breast as compared to the right side. No other significant abnormalities are identified. Stable small benign-appearing bilateral axillary lymph nodes. BI/SCRN MAMM (CAD)W/MIRANDA BILAT IMPRESSION: Stable bilateral screening mammogram. Yearly follow-up mammogram recommended. (A) ASSESSMENT CATEGORY: BIRADS Category 2: Benign. A letter regarding these results will be sent to the patient by the facility within 30 days. Approximately 10% of breast cancers are not detected by mammography. A normal mammogram should not delay biopsy of a clinically suspicious abnormality. [id number] Electronically Signed: Zeeshan Harper MD at 10:12 EST ,
== END | disposition home or self-care (01) ==
LOC: OPBI 14:31
PROVIDERS: PCP Family Medicine; Referring Provider Family Medicine; Visit Provider Family Medicine
DX: Z12.31 Encounter for screening mammogram for malignant neoplasm of breast (principal)
CPT/HCPCS: 77063; 77067

== ENCOUNTER → 2023-07-18 | Outpatient (CLI) | payer OTHER, SELFPAY ==
[2023-07-18 13:07] LABS: Thyroid Stim Hormone (TSH) 4.14 uIU/mL (0.358-3.74)
== END | disposition home or self-care (01) ==
LOC: BFHLAB 09:26
PROVIDERS: PCP Family Medicine; Referring Provider Family Medicine; Visit Provider Family Medicine
DX: E03.9 Hypothyroidism, unspecified (principal); R73.01 Impaired fasting glucose
CPT/HCPCS: 36415; 83036; 84439; 84443

== ENCOUNTER → 2023-08-15 | Outpatient (CLI) | payer OTHER, SELFPAY ==
--- NOTE | 2023-08-15 12:24 | CT_ITS ---
STUDY: CT ABDOMEN AND PELVIS WITH CONTRAST REASON FOR EXAM: Female, 47 years old. RUQ AND FLANK PAIN, PRIOR HYSTERECTOMY AND CHOLECYSTECTOMY RADIATION DOSAGE (If Supplied By Facility): CTDIvol = ( 15.28 ) mGy, DLP = ( 1264.50 ) mGycm TECHNIQUE: Transaxial images were obtained from the dome of the diaphragm to the symphysis pubis with oral contrast. Oral and amp; IV Readi-CAT and amp; 100mL Isovue-300 was administered. Sagittal and coronal images were reconstructed. Individualized dose optimization techniques were used for this CT. COMPARISON: Comparison is made with prior study dated 03/07/2017. FINDINGS: The visualized lung bases are unremarkable. The visualized portions of the heart are within normal limits. There is decreased attenuation of the liver consistent with steatosis. The patient is status post cholecystectomy. Normal spleen. Normal pancreas. Normal bilateral adrenal glands. Stable small focal scar in the posterior aspect of the right renal cortex. Normal left kidney. There is a small hiatal hernia. Normal small intestine. Moderate amount of fecal material is seen in the colon. The appendix is visualized and appears normal. Normal abdominal aorta. Normal inferior vena cava. Normal retroperitoneum. Normal urinary bladder. There is absence of the uterus consistent with a prior hysterectomy. Stable small fat-containing hernia just inferior to the left side of the umbilicus. The neck of there are new measures 1.8 cm. Small benign-appearing bilateral inguinal lymph nodes. There are mild degenerative changes of the visualized lumbar spine. CT/Abdomen/Pelvis WITH Contrast IMPRESSION: Diffuse fatty infiltration of the liver. Stable small fat-containing hernia just inferior to the left side of the umbilicus. Electronically Signed: Zeeshan Harper MD at 13:05 EDT ,
[2023-08-15 12:53] LABS: EGFR FINGERSTICK > 60.0000 mL/min (>60)
== END | disposition home or self-care (01) ==
LOC: CT 12:18
PROVIDERS: PCP Family Medicine; Referring Provider Family Medicine; Visit Provider Family Medicine
DX: R10.11 Right upper quadrant pain (principal); Z85.528 Personal history of other malignant neoplasm of kidney
CPT/HCPCS: 74177; Q9967

== ENCOUNTER → 2024-08-15 | Outpatient (CLI) | payer OTHER, SELFPAY ==
--- NOTE | 2024-08-15 12:05 | US_ITS ---
STUDY: SUPERFICIAL ULTRASOUND - LEFT AXILLARY REGION. REASON FOR EXAM: Female, 48 years old. SQ MASS LEFT AXILLA TECHNIQUE: A superficial ultrasound was performed with real-time and static zamarripa-scale imaging. COMPARISON: None. FINDINGS: The palpable abnormality corresponds to a 9 mm x 8 mm x 6 mm hypoechoic nodule in the subcutaneous tissue just deep to the skin surface. Blood flow is seen within it. This is not a typical lymph node. This may represent a sebaceous cyst. Tissue diagnosis is recommended. US/Ext Non Vasc Limited/Soft Tiss IMPRESSION: The palpable abnormality corresponds to a 9 mm x 8 mm x 6 mm hypoechoic nodule in the subcutaneous tissue just deep to the skin surface blood flow. This is not a typical benign lymph node. Tissue diagnosis recommended. Electronically Signed: Zeeshan Harper MD at 8:46 EDT ,
--- NOTE | 2024-08-15 12:05 | BI_ITS ---
MAMMOGRAPHY - BILATERAL SCREENING REASON FOR EXAM: Female, 48 years old. Routine annual screening examination. PERTINENT HISTORY: Aunt with breast cancer. TECHNIQUE: Digital bilateral breast miranda (3D mammographic acquisition) in the CC and MLO projections. 2-D mediolateral oblique (MLO) and craniocaudad (CC) views of both breasts were obtained. CAD: Full Field Digital Mammography with Computer Added Detection was performed. COMPARISON: Comparison is made with prior study October 21, 2022 and August 03, 2021. FINDINGS: Breast Composition: There are scattered areas of fibroglandular density. There are no dominant masses or suspicious calcifications. Stable asymmetry of breast tissue with more breast tissue is seen in the upper outer aspect of the left breast as compared to Stable small benign-appearing bilateral axillary lymph nodes. No other significant abnormalities are identified. There has been no significant change since the prior study. BI/SCRN MAMM (CAD)W/MIRANDA BILAT IMPRESSION: Stable bilateral screening mammogram. Yearly follow-up mammogram recommended. (A) ASSESSMENT CATEGORY: BIRADS Category 2: Benign. A letter regarding these results will be sent to the patient by the facility within 30 days. Approximately 10% of breast cancers are not detected by mammography. A normal mammogram should not delay biopsy of a clinically suspicious abnormality. [id number] Electronically Signed: Zeeshan Harper MD at 13:19 EDT ,
== END | disposition home or self-care (01) ==
LOC: OPBI 12:01
PROVIDERS: PCP Family Medicine; Referring Provider Family Medicine; Visit Provider Family Medicine
DX: Z12.31 Encounter for screening mammogram for malignant neoplasm of breast (principal)
CPT/HCPCS: 76882; 77063; 77067

== ENCOUNTER 2025-04-08 22:27 | Emergency (ER) | payer OTHER, SELFPAY ==
[2025-04-08 22:27] VITALS: BP 197/111; PULSE 81; RESP 18; TEMP 36; O2SAT 97; BMI 39.6
--- NOTE | 2025-04-08 22:55 | EDS_ITS ---
HPI History of Present Illness Chief Complaint: Headache Informant: patient and spouse/S.O. Narrative Narrative: 49-year-old female presenting to the emergency room with headache. Patient states that her and her are having intercourse and she has developed a significant headache left side of her head and face and is also involving on the right periorbital face states she is never had a headache before. She states that the left side of her scalp felt different like it was numb inside. She took 400 mg of ibuprofen. She states that that did not help. She states that time she got here her headache had decreased significantly down to about a 3 out of 10. She notes that her blood pressure was significantly elevated in triage (197/111). She is on single agent amlodipine at 5 mg a day for hypertension. She denies any chest pain. She denies any arm or leg symptoms. She states she does not feel that she had any speech difficulty or change in vision. Patient notes a history of renal cancer. [facility] Medical History Cellulitis of right lower leg Cellulitis of right forearm Insect bite Wears contact lenses Wears glasses Cancer Post-menopausal High cholesterol History of hiatal hernia History of diverticulitis Gastric reflux Former smoker Shortness of breath on exertion History of stress test Hypertension Encounter for screening for COVID-19 child Hypercholesterolemia Thyroid disease Shoulder pain History of kidney cancer Home Medications ?Medication ?Instructions ?Recorded ?Last Taken ?Type omeprazole 20 mg tablet,delayed 20 mg PO QHS 03/17/22 Unknown History release amlodipine 5 mg tablet 5 mg PO QDAY 08/30/24 Unknow n History levothyroxine 125 mcg tablet 125 mcg PO QDAY 08/30/24 Unknown History simvastatin 20 mg tablet 20 mg PO QHS 08/30/24 Unknow n History Allergy/AdvReac Type Severity Reaction Status Date / Time amoxicillin Allergy Mild Rash Verified 04/08/25 22:27 azithromycin (From Zithromax Allergy Mild Rash Verified 04/08/25 22:27 Z-Bryan) potassium Allergy Mild PT UNSURE Verified 04/08/25 22:27 OF REACTION prednisone Allergy Mild Rash Verified 04/08/25 22:27 Sulfa (Sulfonamide Allergy Mild Rash Verified 04/08/25 22:27 Antibiotics) adhesive Allergy Rash Verified 04/08/25 22:27 Family History Mother Myocardial infarction Hypercholesterolemia Heart disease Hypertension Father Colon cancer Diabetes Surgical History History of surgical removal of ganglion cyst Hx of wisdom tooth extraction Hx of partial nephrectomy Hx laparoscopic cholecystectomy History of tonsillectomy and adenoidectomy Hx of colonoscopy History of hysterectomy Social History Smoking Status: Former smoker alcohol intake: never substance use type: does not use ROS ROS ED Constitutional Constitutional ED: Denies chills, fever(s) or weight loss Eyes Eyes: Denies change in vision or diplopia ENT ENT ED: Denies ear pain, rhinorrhea or sore throat Cardiovascular Cardiovascular: Denies chest pain, orthopnea, palpitations or racing heartbeat Respiratory/Chest Respiratory/Chest: Denies cough, dyspnea or orthopnea Gastrointestinal Gastrointestinal: Denies abdominal pain, diarrhea, nausea or vomiting Genitourinary Genitourinary ED: Denies dysuria, hematuria or urinary frequency Musculoskeletal Musculoskeletal: Denies arthralgias or myalgias Integumentary Denies abscess or rash Neurologic Neurologic: Reports headache(s) and paresthesias; Denies weakness Psychiatric Psychiatric: Denies anxiety, depression, suicidal ideation or suicidal thoughts Endocrine Endocrinology: Denies polydipsia, polyphagia or polyuria Allergic/Immunologic Allergic/Immunologic ED: Denies mouth swelling, tongue swelling or urticaria EXAM Physical Exam Const Vital Signs: 04/08/25 22:27 04/09/25 00:05 04/09/25 00:07 Temperature 96.8 F L Temperature Source Temporal Pulse Rate 81 71 65 Respiratory Rate 18 17 12 Blood Pressure 197/111 H 147/135 H Blood Pressure Mean 139 140 Pulse Ox 97 Oxygen Delivery Method Room Air 04/09/25 00:08 04/09/25 00:08 04/09/25 00:10 Temperature Temperature Source Pulse Rate 70 69 Respiratory Rate 14 12 Blood Pressure 136/112 H 136/108 H 141/96 H Blood Pressure Mean 122 117 107 Pulse Ox Oxygen Delivery Method Room Air 04/09/25 00:11 04/09/25 00:11 04/09/25 00:15 Temperature Temperature Source Pulse Rate 63 62 Respiratory Rate 13 12 Blood Pressure 142/99 H 142/118 H Blood Pressure Mean 113 128 Pulse Ox 97 Oxygen Delivery Method Room Air 04/09/25 01:23 Temperature 98.7 F Temperature Source Pulse Rate 80 Respiratory Rate 14 Blood Pressure 112/78 Blood Pressure Mean 89 Pulse Ox 100 Oxygen Delivery Method Positive well nourished and well developed General Appearance ED: well developed and NAD HEENT Reports normocephalic, head/scalp atraumatic and moist mucous membranes Eyes PERRL and EOMs intact bilaterally Neck no lymphadenopathy, supple and no JVD Neck Narrative: No bruits are heard. Strong carotid upstroke bilaterally Resp normal respiratory effort and clear to auscultation bilaterally Cardio regular rate, regular rhythm and no murmurs GI normal to inspection, nondistended, normoactive bowel sounds and non-tender Palpation: soft Back/Spine no CVA tenderness and normal ROM Extremity normal to inspection General Extremety ED: Negative for edema General Extremity: Negative for edema Neuro oriented x3 and CN's II-XII intact bilaterally Estefania Coma Scale: document GCS findings Spontaneous Obeys Commands Oriented 15 Sensorium / Orientation: alert Speech: speech normal Gait (Neuro): normal gait Motor Exam: strength 5/5 throughout Psych mental status grossly normal Mood & Affect: Negative for depressed or tearful Skin no rashes or lesions noted and no wounds MDM MDM MDM Narrative Medical decision making narrative: Differential diagnosis includes but not limited to intracranial hemorrhage dissection malignancy primary headache hypertensive urgency vasospasm stroke Basic blood work is obtained to check for renal function shows a creatinine 0.86 glucose 119. CTA of the head and neck was obtained which is negative for LVO hemorrhage or aneurysm. No evidence of malignancy at this time. Repeat examination finds the patient's blood pressure to be down. During my examination her blood pressure was 129/87. She states her headache is fully resolved. At this point I think the patient can be discharged home. Would recommend PCP follow-up. Monitoring her blood pressure at home. History & Record Review Discussion w/independent historian: Patient and Significant other Lab Data Attestation: I reviewed the patient's lab results. Labs: Laboratory Results - last 24 hr 04/08/25 23:01 WBC 10.9 RBC 4.71 Hgb 14.0 Hct 40.4 MCV 85.8 MCH 29.7 MCHC 34.7 RDW Std Deviation 38.2 RDW Coeff of Deanna 12.2 Plt Count 367 MPV 9.4 Immature Gran % (Auto) 0.700 Neut % (Auto) 51.3 Lymph % (Auto) 35.9 Beaver % (Auto) 8.4 Eos % (Auto) 3.0 Baso % (Auto) 0.7 Absolute Neuts (auto) 5.6 Absolute Lymphs (auto) 3.92 Nucleated RBC % 0 Sodium 138 Potassium 3.9 Chloride 102 Carbon Dioxide 25.6 Anion Gap 10 BUN 18 Creatinine 0.86 Estim Creat Clear Calc 98.81 Est GFR (MDRD) Non-Af 84 BUN/Creatinine Ratio 20.7 H Glucose 119 H Calcium 9.6 Radiography Diagnostic Testing: Clinical Impression(s) from Imaging Studies Head/Neck CTA 04/08/25 23:54 IMPRESSION: No intracranial hemorrhage, mass effect or CT evidence of large vascular territory acute infarct. No vessel cut off, flow significant stenosis, dissection or aneurysm identified. Reading Location: [id number] Discharge Plan Triage Chief Complaint: Headache ED Provider: Elias Cain Dx/Rx/DC Orders Clinical Impression: Headache, Hypertension Instructions: ED Headache Unspecified, ED High Blood Pressure Hypertension Prescriptions: No Action amlodipine 5 mg tablet 5 mg PO QDAY simvastatin 20 mg tablet 20 mg PO QHS levothyroxine 125 mcg tablet 125 mcg PO QDAY omeprazole 20 mg Tablet,Delayed Release (Dr/Ec) 20 mg PO QHS Primary Care Provider: Chas Gibbs Referrals: Chas Gibbs DO [Primary Care Provider] - As Needed Print Language: Spanish Disposition Disposition: Home, Self Care Discharge Date/Time: 04/09/25 01:26 NIHSS NIHSS 1a. Level of Consciousness: 0 - Alert; keenly responsive 1b. LOC Questions: 0 - Answers BOTH questions correctly 1c. LOC Commands: 0 - Performs BOTH tasks correctly 2. Best Gaze: 0 - Normal 3. Visual: 0 - No visual loss 4. Facial Palsy: 0 - Normal symmetrical movements 5a. Left Arm: 0 - No drift; arm holds 90 (or 45) degrees for full 10 seconds 5b. Right Arm: 0 - No drift; arm holds 90 (or 45) degrees for full 10 seconds 6a. Left Le - No drift; leg holds 30-degree position for full 5 seconds 6b. Right Le - No drift; leg holds 30-degree position for full 5 seconds 7. Limb Ataxia: 0 - Absent 8. Sensory: 0 - Normal; no sensory loss 9. Best Language: 0 - No aphasia; normal 10. Dysarthria: 0 - Normal 11. Extinction and Inattention: 0 - No abnormality Total: 0
[2025-04-08 23:20] LABS: Absolute Lymphocyte Count 3.92 X10^3/uL (0.83-4.51); Absolute Neutrophil Count 5.6 X10^3/uL (2.0-7.7); Basophil# 0.08 X10^3/uL; Basophil% 0.7 % (0-1); Eosinophil# 0.33 X10^3/uL; Hematocrit 40.4 % (37-47); Lymphocyte # 3.92 X10^3/ul (0.83-4.51); Lymphocyte % 35.9 % (19-41); Mean Corp Hgb Conc 34.7 g/dL (32-36); Mean Corpuscular Hgb 29.7 pg (27.0-32.0); Mean Corpuscular Volume 85.8 fL (81-99); Mean Platelet Vol. 9.4 fl (6.2-12.0); Monocyte# 0.92 X10^3/uL; Monocyte% 8.4 % (0-10); NRBC Flagged by Analyzer 0 % (0-5); Neutrophil # 5.58 X10^3/uL (2.7-7.7); Neutrophil % 51.3 % (47-70); Platelet Count 367 K/mm3 (150-450); RBC Distribution Width CV 12.2 % (11.6-14.6); RBC Distribution Width SD 38.2 fl (35.1-43.9); Red Blood Count 4.71 M/mm3 (4.2-5.4); White Blood Count 10.9 K/mm3 (4.4-11.0)
[2025-04-08 23:43] LABS: Anion Gap 10 (5-15); BUN 18 mg/dL (4-19); BUN/Creat Ratio 20.7 RATIO (10-20); Calcium,Total 9.6 mg/dL (7.6-11.0); Carbon Dioxide 25.6 mmol/L (21.0-32.0); Chloride 102 mmol/L (98-108); Creatinine, Serum 0.86 mg/dL (0.70-1.20); EST Glomerular Filtration Rate 84 (>60); Estimated Creatinine Clearance 98.81 ml/min (50-250); Glucose 119 mg/dL (70-99); Potassium 3.9 mmol/L (3.3-5.1); Sodium Level 138 mmol/L (133-145)
--- NOTE | 2025-04-08 23:54 | CT_ITS ---
PROCEDURE: CTA HEAD AND NECK W/ CONTRAST 04/08/2025 REASON FOR EXAM: ANEURYSM/DISSECTION (L) SAMPSON TECHNIQUE: Noncontrast head CT and CTA of the head and neck. CTA imaging of the head and neck from the aortic arch to the skull vertex with out contrast and with intravenous contrast. Multiplanar and multisequence images were obtained. Coronal and sagittal MIP images obtained CONTRAST: 89 cc Isovue 370 IV One or more dose reduction techniques were used (e.g., Automated exposure control, adjustment of the mA and/or kV according to patient size, use of iterative reconstruction technique). RADIATION DOSE SUMMARY: CTDlvol: 44.99 mGy DLP: 1584.15 mGycm COMPARISON: None available FINDINGS: No intracranial hemorrhage, mass effect or CT evidence of large vascular territory acute infarct. Ventricles are within limits and midline. Silva-white differentiation appears preserved. Paranasal sinuses, mastoids and orbits appear within limits. Thoracic aortic arch and standard appearing three-vessel arch appear within limits. The vertebral arteries appear codominant and both contribute to the basilar artery. No vessel cut off, dissection or flow significant stenosis. The right and left common and internal carotid arteries appear within limits without flow significant stenosis, vessel cut off or dissection. Petrous and parasellar right and left internal carotid arteries appear intact. The anterior and middle circulations appear intact. The basilar and posterior circulation appears intact. No vessel cut off, flow significant stenosis or aneurysm identified. Major dural venous sinuses appear within limits. Hypoplastic right mastoid. Small mucous retention cysts inferior maxillary sinuses. Visualized upper lungs appear clear. CT/CTA Head AND Neck W/ Contrast IMPRESSION: No intracranial hemorrhage, mass effect or CT evidence of large vascular territ ory acute infarct. No vessel cut off, flow significant stenosis, dissection or aneurysm identified . Reading Location: [id number]
[2025-04-09] VITALS (7 sets, daily range): BP systolic 112–147; BP diastolic 78–135; PULSE 62–80; RESP 12–17; TEMP 37.1; O2SAT 97–100
== END 2025-04-09 01:26 | disposition home or self-care (01) ==
PROVIDERS: Emergency Provider Emergency Medicine; PCP Family Medicine; Visit Provider Emergency Medicine
DX: R51.9 Headache, unspecified (principal); I10 Essential (primary) hypertension; Z87.891 Personal history of nicotine dependence; E78.00 Pure hypercholesterolemia, unspecified; R20.0 Anesthesia of skin; Z79.899 Other long term (current) drug therapy; K21.9 Gastro-esophageal reflux disease without esophagitis
CPT/HCPCS: 70496; 70498; 80048; 85025; 99283; Q9967; A4216

== ENCOUNTER → 2025-07-08 | Outpatient (CLI) | payer OTHER, SELFPAY | END | disposition home or self-care (01) | LOC: BFHLAB 15:37 | PROVIDERS: PCP Family Medicine; Visit Provider Family Medicine | DX: E03.9 Hypothyroidism, unspecified (principal); R73.01 Impaired fasting glucose | CPT/HCPCS: 36415; 83036; 84439; 84443 ==

== ENCOUNTER → 2025-08-19 | Outpatient (CLI) | payer OTHER, SELFPAY ==
--- NOTE | 2025-08-19 15:20 | BI_ITS ---
EXAM: SCRN MAMM (CAD)W/MIRANDA BILAT DATE: 08/19/2025 CLINICAL HISTORY: F, Age 49 y/o , SCREENING Aunt with breast cancer. TECHNIQUE: Procedure Code: [id number] Modality: MG Procedure: SCRN MAMM (CAD)W/MIRANDA BILAT COMPARISON: Prior exam(s) dated August 15, 2024.. FINDINGS: TISSUE DENSITY: There are scattered areas of fibroglandular density. Bilateral Breast Mammographic Findings: No significant masses, calcifications or other abnormalities are identified. No suspicious masses, areas of developing architectural distortion, or suspicious calcifications. There has been no significant interval change. BI/SCRN MAMM (CAD)W/MIRANDA BILAT IMPRESSION: Stable bilateral screening mammogram. OVERALL FINAL ASSESSMENT BI-RADS 1: NEGATIVE. RECOMMENDATION: Routine annual follow-up in 1 Year Additional Recommendation none A letter with findings and recommendations will be mailed to the patient. Reading Location: [place] [id number]
== END | disposition home or self-care (01) ==
LOC: OPBI 15:19
PROVIDERS: PCP Family Medicine; Referring Provider Family Medicine; Visit Provider Family Medicine
DX: Z12.31 Encounter for screening mammogram for malignant neoplasm of breast (principal)
CPT/HCPCS: 77063; 77067

== ENCOUNTER 2025-09-03 07:26 | Day surgery (SDC) | payer OTHER, SELFPAY ==
[2025-09-03] VITALS (8 sets, daily range): BP systolic 91–134; BP diastolic 66–96; PULSE 60–88; RESP 16; TEMP 36.2–36.7; O2SAT 94–99; BMI 37.0
--- NOTE | 2025-09-03 07:55 | H&P.OPEN ---
HPI - General General Date of Service: 09/03/25 HPI Narrative SALAS ROMERO, is a 50 F who presents for an EGD and colonoscopy due to reflux as well as screening due to history of colon polyp and family history?father. Patient states her reflux is about the same even on the omeprazole 40 mg p.o. daily. Office visit 08/04/2025 HPI HPI: 49-year-old female presents due to worsening reflux. Patient states was previously on omeprazole 20 mg p.o. daily and was still having symptoms did see her PCP who got changed mid last month to pantoprazole 20 mg p.o. daily. Patient states that her reflux is worse, worse burping occasional burning up the esophagus. Patient is also due for a screening colonoscopy due to family history of colon cancer?father?as well as a tubular adenoma found in 2021 on colonoscopy. Patient states she has bowel movements daily. Does state that she will occasionally have some right lower quadrant pain but it is relieved with a bowel movement. [facility] Medical History (Updated 08/28/25 @ 12:03 by Stella Bowen) Wears partial dentures Cellulitis of right lower leg Cellulitis of right forearm Insect bite Wears contact lenses Wears glasses Cancer Post-menopausal High cholesterol History of hiatal hernia History of diverticulitis Gastric reflux Former smoker Shortness of breath on exertion History of stress test Hypertension Encounter for screening for COVID-19 child Hypercholesterolemia Thyroid disease Shoulder pain History of kidney cancer Home Medications ?Medication ?Instructions ?Recorded ?Last Taken ?Type amlodipine 5 mg tablet 5 mg PO BID 08/30/24 09/03/25 06:15 History simvastatin 20 mg tablet 20 mg PO QHS 08/30/24 Unknown History omeprazole 40 mg capsule,delayed 40 mg PO QDAY #30 caps 08/04/25 Unknown Rx release phentermine 37.5 mg tablet 37.5 mg PO QDAY 08/04/25 08/27/25 History levothyroxine 150 mcg tablet 150 mcg PO DAILY 08/28/25 09/03/25 06:15 History Allergy/AdvReac Type Severity Reaction Status Date / Time amoxicillin Allergy Mild Rash Verified 09/03/25 07:45 azithromycin (From Zithromax Allergy Mild Rash Verified 09/03/25 07:45 Z-Bryan) prednisone Allergy Mild Rash Verified 09/03/25 07:45 Sulfa (Sulfonamide Allergy Mild Rash Verified 09/03/25 07:45 Antibiotics) adhesive Allergy Rash Verified 09/03/25 07:45 lisinopril AdvReac cough Verified 09/03/25 07:45 Family History Mother Myocardial infarction Hypercholesterolemia Heart disease Hypertension Father Colon cancer Diabetes Surgical History History of surgical removal of ganglion cyst Hx of wisdom tooth extraction Hx of partial nephrectomy Hx laparoscopic cholecystectomy History of tonsillectomy and adenoidectomy Hx of colonoscopy History of hysterectomy Social History Smoking Status: Former smoker alcohol intake: never substance use type: does not use Past Medical/Surgical History Planned Operation Planned Operative Procedure(s): Colonoscopy,EGD Previous Hospitalizations/Surgeries HX Hospitalizations: No Any Problems With Anesthesia: Yes (N&V. NO PROBLEMS WITH 12/2021 SURGERY) You/Your Family Experience Fever (Hyperthermia) With Anes: No Cholinesterase deficiency: No Cardiovascular Hx of Irregular Heartbeat and/or Afib: No Hx Heart Attack: No Hx Congestive Heart Failure: No Hx Hypertension: Yes (CONTROLLED WITH MED) Hx Internal Defibrillator: No Hx Pacemaker: No Respiratory Hx Chronic Obstructive Pulmonary Disease (COPD): No Hx Asthma: No Hx Emphysema: No Hx Sleep Apnea: No CPAP: No Hx Respiratory Tract Infection/Cold (presently): No Do You Snore Loudly (louder than talking or can be heard): No Do You Often Feel Tired/ Fatigued/ Sleepy Dring Daytime?: No Has Anyone Observed You Stop Breathing During Sleep?: No Result (for STOP score): Negative Smoking Status: Former smoker Gastrointestinal Hx Ulcer: No Neurological Hx Seizures: No Hx Multiple Sclerosis: No Hx Parkinson's Disease: No Hx Head/Neck Injury: No Hx Headaches: No Hx Back Injury/Pain: No Does patient have nerve stimulator: No Reproduction : No Psycho/Social Hx Anxiety: No Hx Depression: No Miscellaneous Recent Exposure to Contagious Disease: No Allergies amoxicillin Allergy (Mild, Verified 09/03/25 07:45) Rash azithromycin (From Zithromax Z-Bryan) Allergy (Mild, Verified 09/03/25 07:45) Rash prednisone Allergy (Mild, Verified 09/03/25 07:45) Rash Sulfa (Sulfonamide Antibiotics) Allergy (Mild, Verified 09/03/25 07:45) Rash adhesive Allergy (Verified 09/03/25 07:45) Rash lisinopril Adverse Reaction (Verified 09/03/25 07:45) cough Discharge Is Pt Admitted From a Group Home, or a Fdc: No After D/C, Where Do you Plan to Go: Return Home Vital Signs Vital Signs Vital Signs: 09/03/25 07:47 09/03/25 07:47 Temperature 98.0 F Temperature Source Temporal Pulse Rate 83 Respiratory Rate 16 Respiratory Pattern Normal Blood Pressure 134/96 H Blood Pressure Mean 108 Blood Pressure Source Monitor Blood Pressure Position Sitting Blood Pressure Location Right Arm Pulse Ox 99 Oxygen Delivery Method Room Air Weight Weight: 222 lb 10.67 oz Body Mass Index (BMI) 37.0 Physical Exam Const alert, oriented x3 and no apparent distress HEENT normocephalic and head/scalp atraumatic Resp normal respiratory effort Cardio regular rate GI soft to palpation and non-tender; Negative for non-distended Palpation: Negative for guarding Extremity no clubbing, cyanosis or edema Skin no rashes or lesions noted Neuro CN's II-XII intact bilaterally Psych mental status grossly normal Assessment & Plan Assessment/Plan (1) GERD (gastroesophageal reflux disease): (2) Hx of colonic polyp: (3) Family history of colon cancer in father: Surgery Risks - Colonoscopy I discussed with the patient the risks of the procedure: Yes Risks Include but are not Limited To: Plan for an EGD and colonoscopy risks include but are not limited to: Bleeding, perforation requiring further surgery, inability to complete colonoscopy requiring barium enema.
[2025-09-03] MEDS: Lactated Ringers 1,000 ML 15 ML IV (08:00)
--- NOTE | 2025-09-03 08:09 | PCM.PRE.AN2 ---
ASA Classification* ASA Classification ASA Classification: 2 Assessment & Plan Anesthesia* Anesthesia Assessment Anesthesia Assessment: Discussed sedation and/or anesthesia options, risks, benefits, and alternatives with patient/parents/legal guardian/POA. Questions invited. The patient/parents/legal guardian/POA seems to understand and agrees to proceed with anesthesia plan. Reviewed the physical assessment, medical history, allergy history and patient home medications list prior to surgery/procedure/anesthetic and documented any changes. Performed airway and anesthesia risk assessments. Anesthesia Type Anesthesia Type: MAC History Source History Obtained from:: Patient and Chart Anesthesia Focused Assessment* Temperature: 98.0 F Pulse Rate: 83 Blood Pressure: 134/96 Respiratory Rate: 16 Pulse Ox: 99 Oxygen Delivery Method: Room Air Airway Assessment Mouth opens: >3 cm Mallampati Score: II Teeth Condition: Intact Neck Range of motion (ROM): Full ROM Labs Anesthesia Preop lab: CBC WBC, (4.4-11.0) 9.0 K/mm3 06/04/25, 07:22 RBC, (4.2-5.4) 4.81 M/mm3 06/04/25, 07:22 Hgb, (12.0-15.0) 14.2 g/dL 06/04/25, 07:22 Hct, (37-47) 41.8 % 06/04/25, 07:22 Plt Count, (150-450) 384 K/mm3 06/04/25, 07:22 CHEMISTRY Potassium, (3.3-5.1) 4.1 mmol/L 06/04/25, 07:22 Sodium, (133-145) 141 mmol/L 06/04/25, 07:22 Phosphorus, (2.7-4.5) 2.8 mg/dL 06/04/25, 07:22 BUN, (4-19) 15 mg/dL 06/04/25, 07:22 Creatinine, (0.70-1.20) 0.97 mg/dL 06/04/25, 07:22 Glucose, (70-99) 116 mg/dL H 06/04/25, 07:22 TSH, (0.300-4.200) 7.090 uIU/mL H 07/08/25, 15:38 COAG Pre-Assessment Diagnosis/Proposed Procedure Planned Operative Procedure(s): Colonoscopy,EGD Anesthesia History Anesthesia History - credit administration officer: Anesthesia History - credit administration officer Hx Hospitalization No 09/03/25 07:56 Any Problems With Anesthesia Yes: N&V. NO PROBLEMS WITH 2 09/03/25 07:56 SURGERY Cholinesterase deficiency No 09/03/25 07:56 You/Your Family Experience No 09/03/25 07:56 fever (hyperthermia) with Relationship Recent Exposure to Contagious No 09/03/25 07:56 Disease Does patient have nerve No 09/03/25 07:56 stimulator Patient instructed to have device shut off --Does patient have Pacemaker No 09/03/25 07:47 or ICD? When Was Last Pacemaker Check QUESTION #4 FULL TEXT: You/Your Family Experience fever (hyperthermia) with Anesthesia Last Oral Intake Last Oral intake: Last Oral Intake NPO since 06:15 09/03/25 07:47 Meds taken in AM with sips of Yes 09/03/25 07:47 water? Meds patient instructed to see med list 09/03/25 07:47 take am of surgery PONV PONV - credit administration officer: PONV - credit administration officer Female Yes 08/28/25 12:03 HX of Motion Sickness No 08/28/25 12:03 HX of N/V After Surgery Yes 08/28/25 12:03 Non-Smoker Yes 08/28/25 12:03 Duration of Surgery greater No 08/28/25 12:03 than 60 minutes Number of Risk Factors 3 08/28/25 12:03 PONV Score Moderate Risk 08/28/25 12:03 Height & Weight Height & Weight: Anesthesia: Height & Weight Height 5 ft 5 in 09/03/25 07:47 Weight: 101 kg 09/03/25 07:47 Body Mass Index (BMI) 37.0 09/03/25 07:47 Respiratory Assessment Respiratory Assessment - credit administration officer: Respiratory Tract Infection Hx - credit administration officer Hx Respiratory Tract Infection No 09/03/25 07:56 STOP Sleep Apnea STOP Sleep Apnea - credit administration officer: STOP Sleep Apnea - credit administration officer Hx Hypertension Yes: CONTROLLED WITH MED 09/03/25 07:56 Hx Sleep Apnea No 09/03/25 07:56 CPAP No 09/03/25 07:56 BIPAP Do you snore loudly (louder No 09/03/25 07:56 than talking or can be heard Do you often feel tired/ No 09/03/25 07:56 fatigued/ sleepy during daytime? Has anyone observed you stop No 09/03/25 07:56 breathing during sleep? STOP Results Negative 09/03/25 07:56 QUESTION #5 FULL TEXT : Do you snore loudly (louder than talking or can be heard through closed doors)? 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 Specify any problems Hx of Preganancy in last 3 No 08/28/25 12:03 Months Nurse Filling Out Transfusion JZOLLINGE 08/28/25 12:03 & Questions: Date: 08/28/25 08/28/25 12:03 Time: 12:04 08/28/25 12:03 Patient unable to answer at this time (ie. confused, unrespo /Reproduction History /Reproductive History - credit administration officer: /Reproductive Hx- credit administration officer Hx Now No 09/03/25 07:56 Gestational Age (in weeks): EDC: Hx Hx Para Hx Section SAB No 08/28/25 12:03 Active Medications Active Medications: Current Medications Generic Name Dose Route Start Last Admin Trade Name Freq PRN Reason Stop Dose Admin Lactated Ringer's 1,000 mls @ 15 mls/hr 09/03/25 07:45 09/03/25 08:00 IV 15 mls/hr .Q48H RAINE Administration PFSH Medical History Wears partial dentures Cellulitis of right lower leg Cellulitis of right forearm Insect bite Wears contact lenses Wears glasses Cancer Post-menopausal High cholesterol History of hiatal hernia History of diverticulitis Gastric reflux Former smoker Shortness of breath on exertion History of stress test Hypertension Encounter for screening for COVID-19 child Hypercholesterolemia Thyroid disease Shoulder pain History of kidney cancer Home Medications ?Medication ?Instructions ?Recorded ?Last Taken ?Type amlodipine 5 mg tablet 5 mg PO BID 08/30/24 09/03/25 06:15 History simvastatin 20 mg tablet 20 mg PO QHS 08/30/24 Unknown History omeprazole 40 mg capsule,delayed 40 mg PO QDAY #30 caps 08/04/25 Unknown Rx release phentermine 37.5 mg tablet 37.5 mg PO QDAY 08/04/25 08/27/25 History levothyroxine 150 mcg tablet 150 mcg PO DAILY 08/28/25 09/03/25 06:15 History Allergy/AdvReac Type Severity Reaction Status Date / Time amoxicillin Allergy Mild Rash Verified 09/03/25 07:45 azithromycin (From Zithromax Allergy Mild Rash Verified 09/03/25 07:45 Z-Bryan) prednisone Allergy Mild Rash Verified 09/03/25 07:45 Sulfa (Sulfonamide Allergy Mild Rash Verified 09/03/25 07:45 Antibiotics) adhesive Allergy Rash Verified 09/03/25 07:45 lisinopril AdvReac cough Verified 09/03/25 07:45 Family History Mother Myocardial infarction Hypercholesterolemia Heart disease Hypertension Father Colon cancer Diabetes Surgical History History of surgical removal of ganglion cyst Hx of wisdom tooth extraction Hx of partial nephrectomy Hx laparoscopic cholecystectomy History of tonsillectomy and adenoidectomy Hx of colonoscopy History of hysterectomy Social History Smoking Status: Former smoker alcohol intake: never substance use type: does not use Review of Systems (Anesthesia) ROS Narrative System reviewed and no additional complaints, except as documented.
--- NOTE | 2025-09-03 08:30 | COLBX_PTH ---
PATIENT: SALAS ROMERO LOC: EN U#:[id number] AGE/SX: 50/F ROOM: RE09/03/[address]: Dr. Daphne Montalvo MD : 1975 BED: DIS: 09/03/2025 SPEC #: [id number] RECD: 09/03/25 10:47 STATUS: IAN REQ #: [id number] SEGUN: 09/03/25 08:[address]: Daphne Montalvo DEPT: SURGICAL PATHOLOGY RECD BY: Jose Esposito ENTERED: 09/03/25 11:45 SP TYPE: COLON BX OTHR DR: Dr. Chas Gibbs DO Tissues: A - Gastric mucous membrane B - Gastric mucous membrane Procedures: Immunohistochemical Stains Surgery Specimen Level IV HEADER OPERATION: Colonoscopy, EGD with biopsies and polyp removal with hot snare PRE-OP DIAGNOSIS: GERD, history of colonic polyp, family history of colon cancer in father TISSUE SUBMITTED: A- Antrum biopsy, B- Gastric polyps MICROSCOPIC DIAGNOSIS A. Stomach, antrum, biopsy: * Antral mucosa with mild chronic inflammation and reactive changes * The Helicobacter pylori immunostain is negative B. Stomach, gastric polyps, biopsy * Fundic gland polyps MICROSCOPIC DESCRIPTION Slides are reviewed. All matched controls reacted appropriately. These tests were developed and their performance characteristics determined by [facility]. They may not have been cleared or approved by the U.S. Food and Drug Administration. The FDA has determined that such clearance or approval is not necessary. The above immunohistochemical/dualISH markers are viewed by the Pathologist. GROSS DESCRIPTION A. Received in fixative is one container labeled with the patient's name and designated Antrum biopsy. The specimen consists of one irregular fragment of guzman tissue that measures 0.6 cm. The specimen is totally submitted in one cassette. B. Received in fixative is one container labeled with the patient's name and designated Gastric polyps. The specimen consists of three guzman-red granular, sessile polyps ranging from 0.8 x 0.7 x 0.5 cm to 1.1 x 1.0 x 0.6 cm. The resection margins are differentially inked (green/black/yuli) and each is trisected. Entirely submitted in 2 cassettes as follows: B1: Smallest polyps, green/blackB2: Largest polyp, yuli SC 09/03/2025 CPT:64914e7
--- NOTE | 2025-09-03 09:05 | OP.PROVAT_ITS ---
09/03/2025 Chas Gibbs [address] [facility] [place] [address] Re : Upper GI endoscopy procedure for Xiao Courtney Dear Dr. Gibbs This procedure was performed on Wednesday, September 03, 2025. My impressions and recommendations are as follows: Impressions : - Z-line variable, 35 cm from the incisors. - Normal examined duodenum. - Multiple gastric polyps. - Erythematous mucosa in the antrum. Biopsied. Recommendations : - Discharge patient to home. - Resume previous diet. - Continue present medications. - Await pathology results. My findings are described in the full procedure note, which is enclosed. If I can be of further assistance, please feel free to contact me at Doctor phone number(s): , Work: . Sincerely, MD Daphne Perea MD 09/03/2025 9:05:26 AM This report has been signed electronically.
--- NOTE | 2025-09-03 09:05 | OP.EGD_ITS ---
Patient Name: Xiao Courtney Procedure Date: 09/03/2025 8:20 AM Date of : 1975 Age: 50 Procedure: Upper GI endoscopy Indications: Heartburn Providers: Daphne Montalvo MD Referring MD: Chas Gibbs Medicines: Monitored Anesthesia Care Patient Profile: This is a 50 year old female. Complications: No immediate complications. Procedure: Pre-Anesthesia Assessment: - Prior to the procedure, a History and Physical was performed, and patient medications and allergies were reviewed. The patient's tolerance of previous anesthesia was also reviewed. The risks and benefits of the procedure and the sedation options and risks were discussed with the patient. All questions were answered, and informed consent was obtained. Prior Anticoagulants: The patient has taken no anticoagulant or antiplatelet agents. ASA Grade Assessment: Per anesthesia. After reviewing the risks and benefits, the patient was deemed in satisfactory condition to undergo the procedure. After obtaining informed consent, the endoscope was passed under direct vision. Throughout the procedure, the patient's blood pressure, pulse, and oxygen saturations were monitored continuously. The Colonoscope was introduced through the mouth, and advanced to the second part of duodenum. The upper GI endoscopy was accomplished without difficulty. The patient tolerated the procedure well. Scope In: 8:31:41 AM Scope Out: 8:39:47 AM Total Procedure Duration Time 0 hours 8 minutes 6 seconds Findings: The Z-line was variable and was found 35 cm from the incisors. The examined duodenum was normal. Multiple 2 to 10 mm pedunculated and sessile polyps with no bleeding and no stigmata of recent bleeding were found in the gastric body. The polyp was removed with a hot snare. Complete for 3 polyps about 1 cm using a [place] net. The cardia and gastric fundus were normal on retroflexion. Mildly erythematous mucosa without bleeding was found in the gastric antrum. Biopsies were taken with a cold forceps for histology. Biopsies were taken with a cold forceps for Helicobacter pylori cultures. Impression: - Z-line variable, 35 cm from the incisors. - Normal examined duodenum. - Multiple gastric polyps. - Erythematous mucosa in the antrum. Biopsied. Recommendation: - Discharge patient to home. - Resume previous diet. - Continue present medications. - Await pathology results. Procedure Code(s): --- Professional --- 64315, Esophagogastroduodenoscopy, flexible, transoral; with removal of tumor(s), polyp(s), or other lesion(s) by snare technique 72316, 59, Esophagogastroduodenoscopy, flexible, transoral; with biopsy, single or multiple Diagnosis Code(s): --- Professional --- K22.89, Other specified disease of esophagus K31.7, Polyp of stomach and duodenum K31.89, Other diseases of stomach and duodenum R12, Heartburn CPT copyright 2021 [employer]. All rights reserved. The codes documented in this report are preliminary and upon monumental stonemason review may be revised to meet current compliance requirements. MD Daphne Perea MD 09/03/2025 9:05:26 AM This report has been signed electronically. Number of Addenda: 0 Note Initiated On: 09/03/2025 8:20 AM
--- NOTE | 2025-09-03 09:08 | PCM.POST.ANE ---
Anesthesia: Postop Eval I Current Vital Signs Temperature: 97.1 F Pulse Rate: 88 Blood Pressure: 111/77 Respiratory Rate: 16 Pulse Ox: 96 Oxygen Delivery Method: Room Air Assessment Airway patent: Yes Spontaneous unlabored respirations: Yes Mental status: Awake and Calm nausea: No Vomiting: No Anesthesia Complication: No Fluid Hydration Crystalloid volume administer (ml): 900 Total IV fluid infused: 900 Progress Note Anesthesia document: Postop Eval 1 completed: Yes
--- NOTE | 2025-09-03 09:12 | OP.COLON_ITS ---
Patient Name: Xiao Courtney Procedure Date: 09/03/2025 8:39 AM Date of : 1975 Age: 50 Procedure: Colonoscopy Indications: High risk colon cancer surveillance: Personal history of colonic polyps, Family history of colon cancer in a first-degree relative before age 60 years Providers: Daphne Montalvo MD Referring MD: Chas Gibbs Medicines: Monitored Anesthesia Care Patient Profile: This is a 50 year old female. Last Colonoscopy: February 2022. Complications: No immediate complications. Procedure: Pre-Anesthesia Assessment: - Prior to the procedure, a History and Physical was performed, and patient medications and allergies were reviewed. The patient's tolerance of previous anesthesia was also reviewed. The risks and benefits of the procedure and the sedation options and risks were discussed with the patient. All questions were answered, and informed consent was obtained. Prior Anticoagulants: The patient has taken no anticoagulant or antiplatelet agents. ASA Grade Assessment: Per anesthesia. After reviewing the risks and benefits, the patient was deemed in satisfactory condition to undergo the procedure. After I obtained informed consent, the scope was passed under direct vision. Throughout the procedure, the patient's blood pressure, pulse, and oxygen saturations were monitored continuously. The Colonoscope was introduced through the anus and advanced to the cecum, identified by the appendiceal orifice, ileocecal valve and palpation. The colonoscopy was performed without difficulty. The patient tolerated the procedure well. The quality of the bowel preparation was good. Scope In: 8:41:35 AM Scope Withdrawal Time 0 hours 9 minutes 14 seconds Scope Out: 8:56:21 AM Total Procedure Duration Time 0 hours 14 minutes 46 seconds Findings: The perianal and digital rectal examinations were normal. A few small-mouthed diverticula were found in the sigmoid colon. The exam was otherwise without abnormality on direct and retroflexion views. Impression: - Diverticulosis in the sigmoid colon. - The examination was otherwise normal on direct and retroflexion views. - No specimens collected. Recommendation: - Discharge patient to home. - High fiber diet. - Continue present medications. - Repeat colonoscopy in 5 years for screening purposes. Procedure Code(s): --- Professional --- G0105, PT, Colorectal cancer screening; colonoscopy on individual at high risk Diagnosis Code(s): --- Professional --- Z86.010, Personal history of colonic polyps Z80.0, Family history of malignant neoplasm of digestive organs K57.30, Diverticulosis of large intestine without perforation or abscess without bleeding CPT copyright 2021 [employer]. All rights reserved. The codes documented in this report are preliminary and upon bulk tank car unloader review may be revised to meet current compliance requirements. MD Daphne Perea MD 09/03/2025 9:11:54 AM This report has been signed electronically. Number of Addenda: 0 Note Initiated On: 09/03/2025 8:39 AM
--- NOTE | 2025-09-03 09:12 | OP.PROVAT_ITS ---
09/03/2025 Chas Gibbs [address] [place] [address] Re : Colonoscopy procedure for Xiao Torresylor Dear Dr. Gibbs This procedure was performed on Wednesday, September 03, 2025. My impressions and recommendations are as follows: Impressions : - Diverticulosis in the sigmoid colon. - The examination was otherwise normal on direct and retroflexion views. - No specimens collected. Recommendations : - Discharge patient to home. - High fiber diet. - Continue present medications. - Repeat colonoscopy in 5 years for screening purposes. My findings are described in the full procedure note, which is enclosed. If I can be of further assistance, please feel free to contact me at Doctor phone number(s): , Work: . Sincerely, MD Daphne Perea MD 09/03/2025 9:11:54 AM This report has been signed electronically.
--- NOTE | 2025-09-03 12:28 | PCM.POSTANE2 ---
Anesthesia Postop Eval I Sum Postop Eval Completion status Anesthesia document: Postop Eval 1 completed: Yes Anesthesia Postop Eval I Summary Anesthesia Postop Eval I Summary: Anesthesia Postop Eval I: Assessment Summary Airway patent Yes 09/03/25 09:09 [email or web address] Spontaneous unlabored Yes 09/03/25 09:09 [email or web address] respirations Mental status Awake,Calm 09/03/25 09:09 [email or web address] nausea No 09/03/25 09:09 [email or web address] Vomiting No 09/03/25 09:09 [email or web address] Anesthesia Postop Eval I: Fluid Summary Crystalloid volume administer 900 09/03/25 09:09 [email or web address] (ml) Colloids volume administered ( ml) Blood Product volume administered (ml) Total IV fluid infused 900 09/03/25 09:09 [email or web address] Anesthesia Postop Eval I: Summary Notes Anesthesia Complication No 09/03/25 09:09 [email or web address] Anesthesia Complication Comment: Post-operative progress note Anesthesia: Postop Eval II Evaluation Mental status: Awake and Calm Pain Level: 1 nausea: No Vomiting: No Complications Anesthesia Complication: No
== END 2025-09-03 10:10 | disposition home or self-care (01) ==
LOC: EN 07:27 → AC 07:29
PROVIDERS: PCP Family Medicine; Referring Provider Family Medicine; Visit Provider Surgery
PROC: 0DJD8ZZ Inspection of Lower Intestinal Tract, Via Natural or Artificial Opening Endoscopic (ICD-10-PCS; CPT 45378; principal; 2025-09-03 08:25)
DX: Z12.11 Encounter for screening for malignant neoplasm of colon (principal); K21.9 Gastro-esophageal reflux disease without esophagitis; K31.7 Polyp of stomach and duodenum; K22.89 Other specified disease of esophagus; K31.89 Other diseases of stomach and duodenum; K57.30 Diverticulosis of large intestine without perforation or abscess without bleeding; Z79.899 Other long term (current) drug therapy; I10 Essential (primary) hypertension; E78.00 Pure hypercholesterolemia, unspecified; Z86.0101 Personal history of adenomatous and serrated colon polyps; Z85.528 Personal history of other malignant neoplasm of kidney; Z87.891 Personal history of nicotine dependence; Z80.0 Family history of malignant neoplasm of digestive organs
CPT/HCPCS: 43251; 43239; 45378; 88305; 88342; J2405